=== PATIENT | female | born 1990 ===

== ENCOUNTER 2019-11-10 09:56 | Inpatient (IN) | payer OTHER ==
[~2019-11-10] VITALS: Ht 167.6 cm; Wt 72.6 kg
[2019-11-10] MEDS ORDERED: FOLIC ACID20 MG (10:00)
[2019-11-10] MEDS ORDERED: IRON240 MG (10:01)
== END 2019-11-11 11:02 | disposition home or self-care (01) | DRG 779 ==
LOC: ER 09:56 → SEC-K 10:50 → OB/GYN 10:50
PROVIDERS: Obstetrics & Gynecology; ADMIT Obstetrics & Gynecology
PROC: 10D17Z9 Manual Extraction of Products of Conception, Retained, Via Natural or Artificial Opening (ICD-10-PCS; principal; 2019-11-10 12:00)
DX: O03.4 Incomplete spontaneous abortion without complication (principal); D62 Acute posthemorrhagic anemia